=== PATIENT | male | born 1990 | race American Indian/Alaskan Native ===

== ENCOUNTER 2021-03-21 18:47 | Emergency (ER) | payer OTHER, BC ==
[~2021-03-21] VITALS: Ht 172.7 cm; Wt 81.7 kg
[~2021-03-21 18:47] MED LIST: CEPH500 PO; OXYACE5T PO; RXCODACET PO
[2021-03-21] MEDS ORDERED: ALBUTEROL0.63 MG/3 (19:06)
== END 2021-03-21 21:05 | disposition home or self-care (01) ==
LOC: ER 18:47
DX: S51.811A Laceration without foreign body of right forearm, initial encounter (principal); S61.011A Laceration without foreign body of right thumb without damage to nail, initial encounter; Z88.0 Allergy status to penicillin; Z88.8 Allergy status to other drugs, medicaments and biological substances; Z87.891 Personal history of nicotine dependence; W01.0XXA Fall on same level from slipping, tripping and stumbling without subsequent striking against object, initial encounter
CPT/HCPCS: 12001; 73090; 99284-25